=== PATIENT | female | born 1975 | race Caucasian/White ===

== ENCOUNTER 2016-05-27 22:17 | Emergency (ER) | payer MEDICARE ==
[2016-05-27 23:23] LABS: APPEARANCE CLOUDY (CLEAR); BILIRUBIN NEGATIVE (NEGATIVE); GLUCOSE NEGATIVE (NEGATIVE); KETONE NEGATIVE (NEGATIVE); LEUKOCYTE ESTERASE TRACE (NEGATIVE); NITRITE NEGATIVE (NEGATIVE); PROTEIN NEGATIVE (NEGATIVE); SPECIFIC GRAVITY 1.015 (1.005-1.020); UROBILINOGEN NORMAL (NORMAL)
[2016-05-27 23:32] LABS: BACTERIA MODERATE /hpf (NONE SEEN); EPITHELIAL CELLS 0-5 /hpf (0-5); GRANULAR CAST OCC /lpf (NONE SEEN); HYALINE CAST RARE /lpf (NONE SEEN); RED CELLS - URINE >50 /hpf (0-5); WHITE CELLS - URINE 0-5 /hpf (0-5)
[2016-05-27 23:44] LABS: BASOPHILS 0.3 % (0.0-2.0); EOSINOPHILS 1.2 % (0-7); HEMATOCRIT 40.1 % (36.0-48.0); HEMOGLOBIN 13.1 g/dL (12-16); IMMATURE GRANULOCYTES 0.9 % (0-5); LYMPHOCYTES 27.2 % (15-50); MCH 32.8 pg (26.0-34.0); MCHC 32.7 g/dL (31.0-37.0); MCV 100.5 fL (80.0-100.0); MONOCYTES 7.8 % (2-11); NEUTROPHILS 62.6 % (40-80); PLATELET COUNT 254 10x3/uL (130-400); RBC 3.99 10x6/uL (4.00-5.40); RDW 14.7 % (11.5-14.5); WBC 9.7 10x3/uL (4.8-10.8)
[2016-05-28 00:01] LABS: HCG SERUM NEGATIVE (NEGATIVE)
[2016-05-28 01:24] LABS: ALBUMIN 4.2 g/dL (3.4-5.0); ANION GAP 9.7 mmol/L (8-16); BILIRUBIN - TOTAL 0.34 mg/dL (0.2-1.3); CALCIUM 9.9 mg/dL (8.5-10.1); CARBON DIOXIDE 33.9 mmol/L (21.0-32.0); CREATININE - SERUM 1.2 mg/dL (0.6-1.3); POTASSIUM - SERUM 3.6 mmol/L (3.5-5.1); PROTEIN - SERUM 8.1 g/dL (6.4-8.2)
== END 2016-05-28 03:44 | disposition home or self-care (01) ==
LOC: D.ER 22:17
PROVIDERS: Family Medicine
DX: N39.0 Urinary tract infection, site not specified (principal); G51.0 Bell's palsy; I10 Essential (primary) hypertension; E03.9 Hypothyroidism, unspecified; G47.30 Sleep apnea, unspecified

== ENCOUNTER 2016-07-27 12:00 | Inpatient (IN) | payer MEDICARE ==
[~2016-07-27] VITALS: Ht 144.8 cm; Wt 154.4 kg
--- NOTE | ~2016-07-27 | CN ---
PATIENT NAME:MARY ANNE BREAUX MEDICAL RECORD: [id number] : 77 LOCATION:[id number] ADMIT DATE: 07/27/16 ACCOUNT: [id number] CONSULTING PHYSICIAN: JOSE RAFAEL ARGUETA MD REFERRING PHYSICIAN: ALFONZO ALVAREZ MD DATE OF CONSULTATION: 07/28/2016 Pulmonary Consultation CONSULT REQUESTING PHYSICIAN: Alfonzo Alvarez MD. REASON FOR CONSULTATION: Acute hypoxic respiratory failure, pneumonia and hemoptysis. HISTORY OF PRESENT ILLNESS: Ms. Breaux is a 41-year-old female, she is sick for the last 2-3 days. She has fever and chills. Two days ago, she was coughing fresh blood when she was coughing, but now there is no hemoptysis. The patient came into the ER with worsening shortness of breath, admitted with pneumonia and asthma exacerbation. REVIEW OF SYSTEMS: Mainly in the history of present illness. The details are not obtainable as the patient is on BiPAP now. PAST MEDICAL HISTORY: 1. Obstructive sleep apnea. 2. History of asthma. 3. Morbid obesity. 4. Hypothyroidism. PAST SURGICAL HISTORY: 1. She has a D&C. 2. Neck surgery. 3. Cyst removed from the ear. ALLERGIES: SHE IS ALLERGIC TO NAFCILLIN. PRESENT MEDICATIONS: On [employer] was reviewed. PERSONAL AND SOCIAL HISTORY: The patient is . She lives with her . She is an ex-smoker. She is a nondrinker. FAMILY HISTORY: Significant for a parent who has cancer. PHYSICAL EXAMINATION: GENERAL: Now, the patient is lying comfortably in bed. She is in mild respiratory distress, she is on BiPAP. VITAL SIGNS: The blood pressure is 112/70, pulse is 94, respirations 36, temperature 97.9 and SPO2 of 93% on BiPAP, 100% oxygen. HEENT: Conjunctivae pink, sclerae nonicteric. NECK: Supple. No JVD. CHEST: There is dullness on percussion in the right upper lobe. There are crackles. No wheezing. HEART: Rate and rhythm is regular, normal sound, no murmur. ABDOMEN: Soft, bowel sounds present. No hepatosplenomegaly. RECTAL: Deferred. CONSULT REPORT [id number] MARY ANNE BREAUX EXTREMITIES: No cyanosis, no clubbing. There is no pedal edema. SKIN: Warm, normal turgor. CENTRAL NERVOUS SYSTEM: The patient is awake and alert. There is no obvious cranial nerve abnormality. The gait was not tested. LABORATORY DATA: CBC: The WBC is 12.5, hemoglobin 8.9, hematocrit 27.7 and the platelet count 265. Chemistry: Sodium is 141, potassium is 4, BUN is 15, creatinine 1.2, glucose 124. ABG: The pH is 7.39, pCO2 is 42.7, the pO2 is 47 and bicarbonate is 26.4. RADIOLOGY: The CT scan of the chest showed multilobar pneumonia with air bronchogram. There are extensive bilateral infiltrates. IMPRESSION: 1. Acute hypoxic respiratory failure secondary to multilobar pneumonia. 2. Acute exacerbation of asthma. 3. Hemoptysis. 4. Morbid obesity. 5. Obstructive sleep apnea. 6. Leukocytosis secondary to pneumonia. The CT scan of the chest showed multilobar pneumonia with air bronchogram. There are extensive bilateral infiltrates. RECOMMENDATION: 1. Discontinue Zithromax. Start her on Levaquin. Continue Rocephin. May start methylprednisolone IV. Start albuterol/ipratropium nebulizer. Start on Brovana and budesonide nebulizer. 2. Racemic epi for hemoptysis p.r.n. 3. Methylprednisolone IV, BiPAP as required. Check the ANCA, anti-GBM, ESR, followup labs in the morning. Follow chest x-ray in the morning. The patient's condition is borderline. If she fails BiPAP, she needs to be intubated. We will hold on any bronchoscopy at this stage. Dr. Alvarez, thank you for involving me in the care of Ms. Breaux. The critical care time is 50 minutes. TRANSINT:[id number] Voice Confirmation ID: [id number] DOCUMENT ID: [id number] JOSE RAFAEL ARGUETA MD CC: [id number] DICTATION DATE: 07/28/16 1140 REHAB TECH: 07/28/16 2017 ADM IN [place] [id number] [place] [address]
[2016-07-27 13:41] LABS: BASOPHILS 0.3 % (0-2); EOSINOPHILS 1.4 % (0-7); HEMATOCRIT 30.8 % (36.0-48.0); HEMOGLOBIN 10.1 g/dL (12-16); IMMATURE GRANULOCYTES 1.7 % (0-5); LYMPHOCYTES 13.8 % (15-50); MCHC 32.8 g/dL (31.0-37.0); MCV 103.7 fL (80.0-100.0); MEAN PLATELET VOLUME 10.4 fL (7.4-10.4); NEUTROPHILS 76.8 % (40-80); PLATELET COUNT 275 10x3/uL (130-400); RBC 2.97 10x6/uL (4.00-5.40); RDW 14.7 % (11.5-14.5); WBC 10.7 10x3/uL (4.8-10.8)
[2016-07-27 13:58] LABS: ALBUMIN 3.7 g/dL (3.4-5.0); ALKALINE PHOSPHATASE 50 U/L (46-116); ALT (SGPT) 28 U/L (10-68); BILIRUBIN - TOTAL 0.86 mg/dL (0.2-1.3); CALC OSMOLALITY 281 mosm/kg (275-300); CALCIUM 9.2 mg/dL (8.5-10.1); CARBON DIOXIDE 29.3 mmol/L (21.0-32.0); CHLORIDE - SERUM 104 mmol/L (98-107); CREATININE - SERUM 1.3 mg/dL (0.6-1.3); GLUCOSE 94 mg/dL (74-106); POTASSIUM - SERUM 4.2 mmol/L (3.5-5.1); PROTEIN - SERUM 7.4 g/dL (6.4-8.2); SODIUM 141 mmol/L (136-145); UREA NITROGEN 16 mg/dL (7-18); eGFR NON AFRICAN AMERICAN 48 mL/min (90-120)
[2016-07-27 14:18] LABS: CREATINE KINASE 742 UL (21-215); PRO BNP 270 pg/mL (0-125)
[2016-07-27 14:20] LABS: CKMB 4.4 U/L (0.0-3.6); TROPONIN-I < 0.017 ng/mL (0.000-0.060)
[2016-07-27 16:06] VITALS: BP 144/94; BMI 75.8
[2016-07-27 16:15] VITALS: BP 144/94
--- NOTE | 2016-07-27 16:24 | NUR ---
PT FROM ER TO ROOM 2112. ADMISSION COMPLETE. AT BEDSIDE. PT IS ON NONREBREATHER MASK 15L SATS ARE 90%. PT PLACED ON TELE. PT DENIES NEEDS WILL CONT TO MONITOR
[2016-07-27] MEDS ORDERED: CIPRO500 MG PO (16:30)
[2016-07-27] MEDS ORDERED: VOLTAREN75 MG PO (16:30)
[2016-07-27] MEDS ORDERED: LISINOPRIL-HCTZ1 T11 PO (16:30)
[2016-07-27] MEDS ORDERED: PHENAZOPYRIDIN200 MG PO (16:31)
[2016-07-27] MEDS ORDERED: BACTRIM DS TABL1 TAB PO (16:31)
[2016-07-27] MEDS ORDERED: HYDROCODON-ACE1 EAC7 PO (16:31)
--- NOTE | 2016-07-27 17:30 | NUR ---
FIRST EKG IN SET COMPLETE AND PLACED ON THE CHART. WILL PASS ALONG IN REPORT ABOUT NEXT TWO DUE.
[2016-07-27 18:22] LABS: % SATURATION 12 % (15-55); IRON 53 ug/dl (35-150); TOTAL IRON BIND CAPACITY 439 ug/dl (260-445); UNSAT IRON BIND CAPACITY 386 ug/dl (150-375)
--- NOTE | 2016-07-27 19:48 | NUR ---
ALERT/AWAKE WATCHING TV. DENIES PAIN OR ANY NEEDS. O2 AT 15L ON NON-REBREATHER MASK. AUDIBLE WHEEZES NOTED. IV IN L AC WITH NS INFUSING 50ML/HR. ON TELEMETRY, SHOWS 96 SR. CALL LIGHT AND BEDSIDE TABLE WITH PERSONAL ITEMS IN REACH.
[2016-07-27 21:42] VITALS: BP 137/68
[2016-07-27 22:26] LABS: CREATINE KINASE 611 UL (21-215); TROPONIN-I < 0.017 ng/mL (0.000-0.060)
--- NOTE | 2016-07-27 22:40 | NUR ---
DID EKG PER ORDER. DENIED ANY NEEDS. RATED PAIN LEVEL AT 2 ON NUMBER SCALE.
[2016-07-28] VITALS (14 sets, daily range): BP systolic 93–147; BP diastolic 56–88; Ht 144.8 cm; Wt 154.4 kg
--- NOTE | 2016-07-28 01:33 | NUR ---
RESTING WITH EYES CLOSED, SNORING LIGHTLY. RR 18 EVEN U/L. 02 AT 15L PER OXIMIZER. NO S/S OF PAIN OR DISCOMFORT. CALL LIGHT IN REACH.
[2016-07-28 04:23] LABS: BASOPHILS 0.2 % (0-2); EOSINOPHILS 1.1 % (0-7); HEMATOCRIT 27.7 % (36.0-48.0); HEMOGLOBIN 8.9 g/dL (12-16); IMMATURE GRANULOCYTES 0.8 % (0-5); LYMPHOCYTES 8.8 % (15-50); MCHC 32.1 g/dL (31.0-37.0); MEAN PLATELET VOLUME 10.3 fL (7.4-10.4); NEUTROPHILS 83.1 % (40-80); PLATELET COUNT 265 10x3/uL (130-400); RBC 2.62 10x6/uL (4.00-5.40); WBC 12.5 10x3/uL (4.8-10.8)
[2016-07-28 04:24] LABS: MCV 105.7 fL (80.0-100.0)
--- NOTE | 2016-07-28 04:41 | NUR ---
ASSISTED TO BATHROOM AND BACK TO BED. CHANGED GOWN AND PAD DUE TO SWEATING. REQUESTED MORE ICE WATER.
[2016-07-28 04:54] LABS: ALBUMIN 3.3 g/dL (3.4-5.0); ALKALINE PHOSPHATASE 49 U/L (46-116); ALT (SGPT) 29 U/L (10-68); BILIRUBIN - TOTAL 0.83 mg/dL (0.2-1.3); CALC OSMOLALITY 282 mosm/kg (275-300); CALCIUM 8.5 mg/dL (8.5-10.1); CARBON DIOXIDE 28.7 mmol/L (21.0-32.0); CHLORIDE - SERUM 106 mmol/L (98-107); CKMB 2.9 U/L (0.0-3.6); CREATINE KINASE 507 UL (21-215); CREATININE - SERUM 1.2 mg/dL (0.6-1.3); GLUCOSE 124 mg/dL (74-106); MAGNESIUM - SERUM 2.2 mg/dL (1.8-2.4); PHOSPHOROUS 3.4 mg/dL (2.5-4.9); PROTEIN - SERUM 6.8 g/dL (6.4-8.2); SODIUM 141 mmol/L (136-145); UREA NITROGEN 15 mg/dL (7-18); eGFR NON AFRICAN AMERICAN 53 mL/min (90-120)
[2016-07-28 05:10] LABS: TROPONIN-I < 0.017 ng/mL (0.000-0.060)
--- NOTE | 2016-07-28 05:25 | NUR ---
GRINDER OPERATOR TOOL REPORT O2 SAT OF 52%. RAISED HOB AND HAD HER DEEP BREATH AND COUGH. ONLY CAME UP TO 62%. CALLED RESP TECH AND SHE PLACED PATIENT ON NON-REBREATHER MASK AT 15L. 02 SAT CAME UP TO 94%.
--- NOTE | 2016-07-28 06:07 | NUR ---
RECHECKED BS WITH GLUCOMETER AT 62. GAVE HER SOME THICKEN APPLEJUICE AND APPLESAUCE.
--- NOTE | 2016-07-28 06:12 | NUR ---
RECHECKED 02 SAT'S AT 94%. DENIES ANY OTHER NEEDS OR DISCOMFORTS.
--- NOTE | 2016-07-28 07:15 | NUR ---
RECEIVED REPORT. ASSUMED CARE OF PATIENT. PATIENT WITH EYES CLOSED. EASILY AROUSED. PATIENT VERY PALE IN APPEARANCE. OXIMIZER AT 15 LITERS. ALERT/ORIENTED. CALL LIGHT WITHIN REACH. PATIENT HAVING SLIGHT BLOOD TINGED SPUTUM. PATIENT IS VERY EDEMATOUS, GENERALIZED. NO ACUTE DISTRESS. SCATTERED WHEEZES AND CRACKLES THROUGHTOUT LUNG WHITLOCK.
--- NOTE | 2016-07-28 07:52 | NUR ---
PATIENT O2 SAT DURING VITALS AT THIS TIME 65% ON 15L OXIMIZER. RESPIRATORY AT BEDSIDE AND STATES THAT SHE WAS PREVIOUSLY ON NON REBREATHER MASK AND GAVE A TREATMENT TO PATIENT. RESPIRATORY, PHILIPP, AT BEDSIDE AT THIS TIME TO DRAW ABGS. PAGE PLACED TO .
--- NOTE | 2016-07-28 08:22 | NUR ---
ORDERS RECEIVED FROM TO PLACE ON BIPAP AND GIVE IV LASIX 40. BIPAP PLACED AT THIS TIME AND PATIENT SATURATION IS 97%, CONTINUOUS O2 SAT AT BEDSIDE.
--- NOTE | 2016-07-28 08:53 | NUR ---
REMAINS ON BIPAP, SATURATION 98%
[2016-07-28 10:02] LABS: CKMB 3.2 U/L (0.0-3.6); CREATINE KINASE 504 UL (21-215)
[2016-07-28 10:05] LABS: TROPONIN-I < 0.017 ng/mL (0.000-0.060)
--- NOTE | 2016-07-28 10:31 | NUR ---
PATIENT O2 SAT 90% ON 100% BIPAP, RESP 47. HOUSE SUP AND EMERGENCY OPERATOR NOTIFIED. PATIENT BEING TRANSFERRED TO ICU RM 2304. SPOKE WITH PAYTON AT THIS TIME AND NOTIFIED OF PATIENT BEING TRANSFERRED.
--- NOTE | 2016-07-28 10:46 | NUR ---
PATIENT TRANSFERRED TO ICU AT THIS TIME. REPORT GIVEN TO ARACELI. PATIENT TRANSERRED WITH ALL PERSONAL BELONGINGS.
--- NOTE | 2016-07-28 11:00 | NUR ---
AT BEDSIDE - UPDATED ON PT'S CONDITION - SPOUSE REPORTS PT USES CPAP AT NIGHT - RESP THEAAPIST ALSO ANSWERED ALL QUESTIONS
--- NOTE | 2016-07-28 11:01 | NUR ---
1045 RECEIVED IN ICU PER BED ON MASK AT 100% OXYGEN, PLACED ON CPAP ON ARRIVAL. VITAL SIGNS STABLE. AWAKE AND ALERT. SKIN WARM AND DRY. BILATERAL LUNG SOUNDS CLEAR AND DIMISHED. ABD SOFT WITH BOWEL SOUNDS PRESENT X 4. PERIPHERAL PULSES PALABLE WTIH NO EDEMA NOTED. IV LEFT AC NO SWELLING OR REDNESS AT SITE. INFUSING WITH NS AT 50 ML HOUR. MONITOR SR. DENIES ANY PAIN.
--- NOTE | 2016-07-28 12:39 | NUR ---
REC'D ORDER TO PLACE NEWMAN FROM DR. ARGUETA - INSERTED WITH ASSISTANCE X 3 RNs. 400 ML ORANGE COLORED URINE OUTPUT. PT TOLERATED PROCEDURE WELL. SPOUSE TOOK ALL PT'S BELONGINGS HOME REQUESTED. PT ASKED FOR A DRINK OF WATER - CONFIRMED W/RT - PT IS NOT TO COME OFF 100% BIPAP. PT NODDED UNDERSTANDING - CPOC
[2016-07-28 12:45] LABS: ERYTHROCYTE SEDIMENTATION RATE 74 mm/hr (0-20)
--- NOTE | 2016-07-28 13:24 | NUR ---
~1300 - R.T. AT BEDSIDE - PLACED PT ON OXYMIZER, GAVE AN ICE CHIP. MONITORING POX CLOSELY ~1315 r.t. PAACED PT ON BIPAP AT ORIGINAL SETTINGS - PT GRATEFUL FOR ICE CHIP. CPOC
--- NOTE | 2016-07-28 18:30 | NUR ---
LOSS OF POWER - CHECKED PT'S BIPAP - IS POX DROPPED 85% PER CONT POX. r.t AT BEDSIDE TO RE-SET BIPAP - PT'S POX UP TO 92%. BACK UP ELECTRICAL POWER AT THIS TIME.
--- NOTE | 2016-07-28 19:15 | NUR ---
RECEIVED CARE OF PT, ASSESSMENT PER FLOWSHEET. PT ALERT AND ORIENTED X 4, RECEIVING 100% FIO2 VIA BIPAP MASK, ORAL CARE PROVIDED, PPP, NEWMAN CATH PATENT WITH BLOODY URINE IN TUBING, BREATH SOUNDS DIMINISHED BILATERALLY, PT POSITIONED FOR COMFORT, CALL LIGHT IN REACH, BED LOW, DENIES ANY NEEDS AT THIS TIME.
--- NOTE | 2016-07-28 21:44 | NUR ---
PT IN FOR VISITATION, ALL QUESTIONS ANSWERED, DENIES ANY NEEDS, PT RESTING WITH BIPAP IN PLACE.
--- NOTE | 2016-07-28 23:15 | NUR ---
REASSESSMENT PER FLOWSHEET, NO ACUTE CHANGES NOTED AT THIS TIME. PT POSITIONED FOR COMFORT, ORAL CARE PROVIDED, VSS, CONT POC.
[2016-07-29] VITALS (23 sets, daily range): BP systolic 90–134; BP diastolic 44–84
--- NOTE | 2016-07-29 01:15 | NUR ---
PT RESTING IN BED WITH EYES CLOSED, BIPAP MASK IN PLACE, VSS.
--- NOTE | 2016-07-29 03:00 | NUR ---
REASSESSMENT PER FLOWSHEET, NO ACUTE CHANGES NOTED. PT DENIES ANY NEEDS AT THIS TIME, CALL LIGHT IN REACH, CONT TO MONITOR.
[2016-07-29 04:35] LABS: ALBUMIN 3.3 g/dL (3.4-5.0); ANION GAP 14.6 mmol/L (8-16); BILIRUBIN - TOTAL 1.08 mg/dL (0.2-1.3); CALCIUM 8.4 mg/dL (8.5-10.1); CARBON DIOXIDE 26.8 mmol/L (21.0-32.0); CREATININE - SERUM 1.2 mg/dL (0.6-1.3); POTASSIUM - SERUM 4.4 mmol/L (3.5-5.1); PROTEIN - SERUM 6.7 g/dL (6.4-8.2)
--- NOTE | 2016-07-29 05:20 | NUR ---
AM LABS REVIEWED, NOTHING TO TREAT PER ELECTROLYTE PROTOCOL. PT RESTING IN BED WITH EYES CLOSED, BIPAP MASK IN PLACE, VSS.
[2016-07-29 07:01] LABS: BASOPHILS 0.1 % (0-2); EOSINOPHILS 0 % (0-7); HEMATOCRIT 27.3 % (36.0-48.0); HEMOGLOBIN 8.7 g/dL (12-16); IMMATURE GRANULOCYTES 0.8 % (0-5); LYMPHOCYTES 3.8 % (15-50); MCH 33.9 pg (26.0-34.0); MCHC 31.9 g/dL (31.0-37.0); MCV 106.2 fL (80.0-100.0); MONOCYTES 2.4 % (2-11); NEUTROPHILS 92.9 % (40-80); PLATELET COUNT 290 10x3/uL (130-400); RBC 2.57 10x6/uL (4.00-5.40); RDW 15.1 % (11.5-14.5); WBC 14.6 10x3/uL (4.8-10.8)
--- NOTE | 2016-07-29 07:45 | NUR ---
0745- REC'D PT AAO X4 ON BIPAP. ASSESSMENT COMPLETE. SEE FLOWSHEET. NEWMAN CATHETER IN PLACE DRAINING BLOODY URINE. LEFT PIV IN 20G AC. 0815- R/T AT BEDSIDE, PLACED ON OXIMISER.
--- NOTE | 2016-07-29 10:45 | NUR ---
1045- PT ON AND OFF BIPAP PRN. PT STATES, "MY BREATHING SEEMS BETTER TODAY". WILL CONTINUE TO MONITOR CLOSELY. 1230- PT RESTING ON BIPAP. VSS. WILL CONTINUE TO MONITOR. 1450- PT RESTING QUIETLY ON BIPAP. R/T AT BEDSIDE.
--- NOTE | 2016-07-29 16:19 | NUR ---
SPEECH THERAPIST, BRITT LI AT BEDSIDE TO EVALUATE.
--- NOTE | 2016-07-29 19:00 | NUR ---
Recevied patient resting in bed on BiPAP, Assessment completed per flowsheet. Patient AO x4, calm and cooperative. S1/S2 noted Sinus Tach on telmetry with HR 106, rhythmic and regluar. Breathing is shallow and slightly labored on BiPAP @ 80%, Lung sounds Diminished all cobb. Abdomen is round and obese, bowel sounds active x4. Field Secured in place, Bloody urine noted in collection bag. Weakness/swelling noted in all extremities, all pulses weakly palpable. Reddened area noted back/buttocks, repositioned. 20g PIV noted L AC, patent with fluids infusing. Patient denies pain or other needs at this time, all VSS and will continue to monitor.
--- NOTE | 2016-07-29 23:00 | NUR ---
Reassessment completed per flowsheet, patient resting in bed with eyes open watching TV. Patient NSR on telemetry with HR 93, rhythmic and regular. BiPAP settings unchanged from previous, O2 sat 98%. Lung sounds diminished all lobes, all pulses weakly palpable. Denies pain or other needs at this time, all VSS and will continue to monitor.
[2016-07-30] VITALS (22 sets, daily range): BP systolic 104–150; BP diastolic 70–108
--- NOTE | 2016-07-30 03:00 | NUR ---
Reassessment completed per flowsheet, patient resting in bed with eyes closed. Patient NSR on telemetry with HR 89, rhythmic and regular. BiPAP settings unchanged @ 80%, O2 sat 100%. Breathing is shallow and slightly labored, lung sounds diminished all lobes. Patient denies pain or other needs at this time, all VSS and will continue to monitor.
[2016-07-30 04:43] LABS: ALBUMIN 3.3 g/dL (3.4-5.0); ANION GAP 13.7 mmol/L (8-16); BILIRUBIN - TOTAL 1.05 mg/dL (0.2-1.3); CALCIUM 8.6 mg/dL (8.5-10.1); CARBON DIOXIDE 27.2 mmol/L (21.0-32.0); CREATININE - SERUM 1.2 mg/dL (0.6-1.3); POTASSIUM - SERUM 3.9 mmol/L (3.5-5.1); PROTEIN - SERUM 6.8 g/dL (6.4-8.2)
--- NOTE | 2016-07-30 07:30 | NUR ---
0730- REC'D PT AAO X4. ASSESSMENT COMPLETE. SEE FLOWSHEET. PT ON BIPAP, RESTING IN BED. VSS. WILL CONTINUE TO MONITOR. 0924- DR HOROWITZ TO BEDSIDE. NEW ORDERS REC'D FOR VAPOTHERM. 3240- REASSESSMENT COMPLETE. SEE FLOWSHEET. PT RESTING BETTER ON VAPOTHERM.
--- NOTE | 2016-07-30 09:37 | NUR ---
Nutrition follow-up: Diet: low sodium PO intake ~75% of last [address] Wt: 350# PO intake good at this time. Will continue to provide food choices and honor food preferences within diet restrictions. RDN following.
--- NOTE | 2016-07-30 13:30 | NUR ---
PT RESTING IN BED, DENIES NEEDS AT THIS TIME.
--- NOTE | 2016-07-30 15:30 | NUR ---
CHANGED PATIENT TO VAPOTHERM @ 40L 100%, AND LEFT BIPAP IN ROOM FOR PRN, PER DR. HOROWITZ.
--- NOTE | 2016-07-30 15:45 | NUR ---
1545- PT SPOUSE AT BEDSIDE VAPOTHERM IN USE.
--- NOTE | 2016-07-30 17:50 | NUR ---
1750- PT SITTING UP IN BED, WATCHING TV, BREATHING COMFORTABLY ON VAPOTHERM.
--- NOTE | 2016-07-30 19:00 | NUR ---
Received patient resting in bed with eyes open, Assessment completed per flowsheet. Patient AO x4, calm and cooperative. Eyes PERRLA @ 3mm with brisk response, sclera is white. S1/S2 noted NSR on telemetry with HR 99, rhythmic and regular. Breathing is slightly shallow and unlabored on 40% Vapotherm, Lung sounds diminished all lobes. Abdomen is obese and soft, Bowel sounds active x4. Field secured in place, Lazy Y U/orange urine noted in collection bag. Generalized swelling and weakness noted all extremities with all pulses palpable, cap refill <3 sec. 20g PIV noted R AC, patent with fluids infusing. Patient denies pain or other needs at this time, all VSS and will continue to monitor.
--- NOTE | 2016-07-30 21:00 | NUR ---
Patient family at bedside for visitation, all questions answered to satisfaction. No further needs at this time, all VSS and will continue to monitor.
--- NOTE | 2016-07-30 22:40 | NUR ---
Reassessment completed per flowsheet, patient resting in bed with eyes open watching TV. S1/S2 noted NSR on telemetry with HR 96, rhythmic and regular. Breathing is slightly shallow and unlabored on Vapotherm @ 40%, O2 sat 99%. Patient denies pain or other needs at this time, all VSS and will continue to monitor.
[2016-07-31] VITALS (24 sets, daily range): BP systolic 135–163; BP diastolic 82–115
--- NOTE | 2016-07-31 01:00 | NUR ---
Patient resting in bed with eyes closed, breathing is shallow and unlabored on Vapotherm @ 40%. No further needs at this time, all VSS and will continue to monitor.
--- NOTE | 2016-07-31 03:00 | NUR ---
Reassessment completed per flowsheet, patient resting in bed with eyes closed. S1/S2 noted NSR on telemetry with HR 94, rhythmic and regular. Breathing is shallow and unlabored on Vapotherm 40%, O2 sat 93%. Patient denies pain or other needs at this time, all VSS and will continue to monitor.
[2016-07-31 03:37] LABS: BASOPHILS 0.2 % (0-2); EOSINOPHILS 0.1 % (0-7); HEMOGLOBIN 9.6 g/dL (12-16); IMMATURE GRANULOCYTES 4.7 % (0-5); LYMPHOCYTES 6.6 % (15-50); MCH 33.8 pg (26.0-34.0); MCV 105.6 fL (80.0-100.0); MEAN PLATELET VOLUME 10.9 fL (7.4-10.4); MONOCYTES 3.6 % (2-11); NEUTROPHILS 84.8 % (40-80); PLATELET COUNT 324 10x3/uL (130-400); RBC 2.84 10x6/uL (4.00-5.40); RDW 15.1 % (11.5-14.5)
[2016-07-31 03:43] LABS: WBC 19.9 10x3/uL (4.8-10.8)
[2016-07-31 03:53] LABS: ALBUMIN 3.2 g/dL (3.4-5.0); ANION GAP 11.9 mmol/L (8-16); BILIRUBIN - TOTAL 1.17 mg/dL (0.2-1.3); CALCIUM 8.8 mg/dL (8.5-10.1); CARBON DIOXIDE 28.1 mmol/L (21.0-32.0); CREATININE - SERUM 1.3 mg/dL (0.6-1.3); MAGNESIUM - SERUM 2.5 mg/dL (1.8-2.4); PHOSPHOROUS 2.1 mg/dL (2.5-4.9); PROTEIN - SERUM 7.2 g/dL (6.4-8.2)
--- NOTE | 2016-07-31 07:00 | NUR ---
REC'D REPORT AND RESUMED CARE, AAO, VAPOTHRM IN USE AT 40 LPM WITH 100% FIO2, SAT 90 %, DENIES SOB OR DYSPNEA, RIGHT FA PIV WITH NS AT 75 C/HR, DRESSING CDI, NEWMAN TO GRAVITY, WITH RED TINGED DRAINAGE TO BAG, DENIES PAIN, ASSESSMENT COMPLETED PER FLOWSHEET, OTHER VSS, SELF REPOSITIONS, CALL LIGHT IN REACH, NO NEEDS AT THIS TIME
--- NOTE | 2016-07-31 08:09 | NUR ---
UP AT BEDSIDE FOR BREAKFAST
--- NOTE | 2016-07-31 11:26 | NUR ---
DR HOROWITZ MAKING ROUNDS NEW ORDERS GIVEN, AFRIN AND SALINE NASAL SPRAY
--- NOTE | 2016-07-31 13:55 | NUR ---
SALINE NASAL SPRAY AND AFRIN NASAL SPRAY IN REQUESTED, 1 SPRAY TO EACH NOSTRIL GIVEN, DIME SIZE BLOODY PLUG BLOWN OUT, STATES FEELS BETTER
--- NOTE | 2016-07-31 15:00 | NUR ---
ASSESSMENT COMPLETE, SEE FLOW SHEET, AAO, VSS, DENIES PAIN, NO NEEDS AT THIS TIME, SPOUSE AT BEDSIDE, STATUS UPDATED, NO NEEDS AT THIS TIME
--- NOTE | 2016-07-31 17:00 | NUR ---
UP AT BEDSIDE FOR DINNER,
--- NOTE | 2016-07-31 18:00 | NUR ---
BTB WITH ASSIST, REPOSITIONED UP AND TO BACK, VSS, CALL LIGHT IN REACH NO OTHER NEEDS AT THIS TIME
--- NOTE | 2016-07-31 18:15 | NUR ---
FAMILY AT BEDSIDE, NO NEEDS AT THIS TIME
--- NOTE | 2016-07-31 19:45 | NUR ---
REC'D TO CARE, RESP TX IN PROCESS. PT COOPERATIVE, LUNGS CLEAR, BUT DIMINISHED. RR 28 AND SLIGHTLY LABORED. NOTED SOB WITH TALKING. VAPOTHERM IN USE, POX 97% AT THIS TIME. COUGH NOTED, YANKAUER IN USE. NEWMAN CATH PATENT WITH CARLA, CONC URINE NOTED. PT IS MORBIDLY OBESE, REPOSITIONED IN BED WITH PILLOWS, HEELS BRIDGED. 1+ PITTING EDEMA TO FEET NOTED. IVF INFUSING TO R PIV, NO REDNESS OR SWELLING AT SITE. ALARMS ON AND C/L IN USE.
--- NOTE | 2016-07-31 21:50 | NUR ---
PO MEDS GIVEN PER ORDERS. PT REPOSITIONED UP IN BED FOR COMFORT. C/L IN REACH.
--- NOTE | 2016-07-31 23:56 | NUR ---
COMPLETE BATH AND LINEN CHANGE DONE. REASSESSMENT PER FLOWSHEET. NO ACUTE CHANGES. PT COOPERATIVE, CONT ON VAPOTHERM, REFUSES BIPAP.
[2016-08-01] VITALS (24 sets, daily range): BP systolic 124–158; BP diastolic 80–116
--- NOTE | 2016-08-01 01:17 | NUR ---
PT C/O BACK PAIN, REPOSITIONED WITH PILLOWS AND PRN NORCO GIVEN.
--- NOTE | 2016-08-01 02:13 | NUR ---
RT AT BS, PT TO BIPAP 80%, RR 24, POX 98%. C/L IN REACH.
--- NOTE | 2016-08-01 03:25 | NUR ---
PCXR DONE. REASSESSMENT PER FLOWSHEET, NO ACUTE CHANGES. PT BACK ON VAPOTHERM AFTER AGBS. ORAL CARE PROVIDED. C/L IN REACH.
[2016-08-01 04:49] LABS: HEMATOCRIT 31.1 % (36.0-48.0); HEMOGLOBIN 9.9 g/dL (12-16); MCH 33.6 pg (26.0-34.0); MCHC 31.8 g/dL (31.0-37.0); MCV 105.4 fL (80.0-100.0); MEAN PLATELET VOLUME 11.3 fL (7.4-10.4); PLATELET COUNT 274 10x3/uL (130-400); RBC 2.95 10x6/uL (4.00-5.40); RDW 15.2 % (11.5-14.5); WBC 20.9 10x3/uL (4.8-10.8)
[2016-08-01 04:58] LABS: ALBUMIN 3.2 g/dL (3.4-5.0); ANION GAP 13.8 mmol/L (8-16); BILIRUBIN - TOTAL 1.17 mg/dL (0.2-1.3); CALCIUM 8.2 mg/dL (8.5-10.1); CARBON DIOXIDE 26.9 mmol/L (21.0-32.0); CREATININE - SERUM 1.2 mg/dL (0.6-1.3); MAGNESIUM - SERUM 2.4 mg/dL (1.8-2.4); PHOSPHOROUS 2.2 mg/dL (2.5-4.9); POTASSIUM - SERUM 3.7 mmol/L (3.5-5.1); PROTEIN - SERUM 6.8 g/dL (6.4-8.2)
--- NOTE | 2016-08-01 05:00 | NUR ---
RESTING QUIETLY, NO SIGN OF DISTRESS.
[2016-08-01 05:31] LABS: LYMPHOCYTES 10 % (15-50); MONOCYTES 1 % (2-11); NEUTROPHILS 82 % (40-80); PLATELET ESTIMATE NORMAL
--- NOTE | 2016-08-01 06:42 | NUR ---
NO VISITORS, PT WATCHING TV. NO SIGN OF DISTRESS.
--- NOTE | 2016-08-01 08:00 | NUR ---
BIPAP OFF AND VAPOTHERM @ 40 LPM AND 100% ON FOR BREAKFAST
[2016-08-01 10:22] LABS: ANA REFLEX - DIRECT Negative (Negative)
--- NOTE | 2016-08-01 10:22 | NUR ---
VASCULAR ACCESS NURSE AT BEDSIDE, PICC LINE IN LEFT UPPER ARM,
--- NOTE | 2016-08-01 10:33 | NUR ---
CALL TO RADIOLOGY FOR STAT CXR
--- NOTE | 2016-08-01 10:38 | NUR ---
STAT CHEST XRAY COMPLETED
--- NOTE | 2016-08-01 10:57 | NUR ---
PER DR ARGUETA, PICC LINE PLACEMENT OK FOR USE
--- NOTE | 2016-08-01 11:00 | NUR ---
RESTING WITH NO SIGN OF DISTRESS, VSS, DENIES PAIN, ASSESSMENT COMPLETED, SEE FLOWSHEET, NO ACUTE CHANGE FROM PREVIOUS
--- NOTE | 2016-08-01 11:45 | NUR ---
LUNCH TRAY TO BEDSIDE, INDEPENDENT WITH SET UP AND EATING
--- NOTE | 2016-08-01 12:35 | NUR ---
VANC TROUGH DRAWN FROM PICC LINE AND SENT TO LAB
--- NOTE | 2016-08-01 14:38 | NUR ---
RT INITIATED UPDRAFT, O2 SAT 67, CHANGED TO BIPAP FOR TREATMENT, O2 SAT 96%
--- NOTE | 2016-08-01 15:00 | NUR ---
ASSESSMENT COMPLETE, VSS CONTINUES ON BIPAP, AAO, SPOUSE AT BEDSIDE, STATUS UPDATED, NO ACUTE CHANGE FROM PREVIOUS
[2016-08-01 15:24] LABS: ANCA - ANTIMYELOPEROXIDASE <9.0 U/mL (0.0-9.0); ANCA - ANTIPROTEINASE 3 <3.5 U/mL (0.0-3.5); ANCA - ATYPICAL <1:20 titer (Neg:<1:20); ANCA - CYTOPLASMIC <1:20 titer (Neg:<1:20); ANCA - PERINUCLEAR <1:20 titer (Neg:<1:20)
--- NOTE | 2016-08-01 17:00 | NUR ---
DINNER TRAY TO BEDSIDE, INDEPENDENT WITH SET UP AND EATING
--- NOTE | 2016-08-01 18:00 | NUR ---
SPOUSE AT BEDSIDE, STATUS UPDATED, NO NEEDS AT THIS TIME, PT AAO, VSS, DENIES PAIN AT THIS TIME
--- NOTE | 2016-08-01 19:30 | NUR ---
ASSESSMENT COMPLETE. S1S2. NSR SHOWING ON MONITOR. RR SHALLOW; DIMINISHED IN THE MID AND LOWER LOBES; WHEEZE NOTED ON IN UPPER LOBES. SKIN PALE. AAO. PERRLA. RADIAL AND PEDAL PULSES PALPATED. BUTTOCKS REDDENED. BACK REDDENED AND BRUISES NOTED.
[2016-08-01 21:07] LABS: MYCOPLASMA PNEUMO IGG 630 U/mL (0-99)
--- NOTE | 2016-08-01 21:15 | NUR ---
FAMILY AT BEDSIDE. UPDATE GIVEN. QUESTIONS ANSWERED
--- NOTE | 2016-08-01 23:15 | NUR ---
REASSESSMENT COMPLETE. NO CHANGES FROM PREVIOUS ASSESSMENT. WILL CONTINUE TO MONITOR.
[2016-08-02] VITALS (24 sets, daily range): BP systolic 130–165; BP diastolic 69–103
--- NOTE | 2016-08-02 03:10 | NUR ---
REASSESSMENT COMPLETE. NO CHANGES FROM PREVIOUS ASSESSMENT. VSS. NO DISTRESS NOTED. WILL CONTINUE TO MONITOR
[2016-08-02 04:22] LABS: BASOPHILS 0.4 % (0-2); EOSINOPHILS 0 % (0-7); HEMATOCRIT 30.4 % (36.0-48.0); HEMOGLOBIN 9.4 g/dL (12-16); IMMATURE GRANULOCYTES 7.4 % (0-5); LYMPHOCYTES 9.7 % (15-50); MCH 33.2 pg (26.0-34.0); MCHC 30.9 g/dL (31.0-37.0); MCV 107.4 fL (80.0-100.0); MEAN PLATELET VOLUME 11.2 fL (7.4-10.4); MONOCYTES 3.6 % (2-11); NEUTROPHILS 78.9 % (40-80); PLATELET COUNT 221 10x3/uL (130-400); RBC 2.83 10x6/uL (4.00-5.40); RDW 14.9 % (11.5-14.5); WBC 20.8 10x3/uL (4.8-10.8)
[2016-08-02 04:27] LABS: ANION GAP 9.7 mmol/L (8-16); CARBON DIOXIDE 31.3 mmol/L (21.0-32.0); CREATININE - SERUM 1.2 mg/dL (0.6-1.3)
--- NOTE | 2016-08-02 07:00 | NUR ---
REC'D REPORT AND RESUMED CARE, VSS VAPOTHERM IN USE AT 80% FIO2, DENIES PAIN, ASSESSMENT COMPLETE PER FLOWSHEET, NO NEEDS AT THIS TIME
--- NOTE | 2016-08-02 08:10 | NUR ---
HERON PAD SOILED, HAVING MENSTRAL CYCLE, SKINCARE AND LINEN CHANGE, UP TO SIDE OF BED FOR BREAKFAST, INDEPENDENT WITH SET UP AND EATING
--- NOTE | 2016-08-02 09:15 | NUR ---
AM MEDS GIVEN WITHOUT DIFFICULTY
--- NOTE | 2016-08-02 10:13 | NUR ---
Nutrition follow-up: Diet: low sodium PO intake 75-100% of meals Labs reviewed Wt: 361# PO intake remains good at this time. RDN following.
--- NOTE | 2016-08-02 11:00 | NUR ---
ASSESSMENT COMPLETE SEE FLOWSHEET, VSS, FIO2 NOW 70% ON VAPOTHERM, SAT 97%, NO OTHER ACUTE CHANGE FROM PREVIOUS
--- NOTE | 2016-08-02 11:32 | NUR ---
FATHER AND UNCLE AT BEDSIDE, DR ARGUETA COUNSELED AND EDUCATED RE: STATUS, VERBALIZED UNDERSTANDING, NOOTHER NEEDS AT THIS TIME
--- NOTE | 2016-08-02 13:00 | NUR ---
REPORT RECD PT CARE TRANSFERED. PT ALERT AND ORIENTED X 4, SITTING ON SIDE OF BED. VSS. WILL CONTINUE TO MONITOR.
--- NOTE | 2016-08-02 15:00 | NUR ---
PT FAMILY AT BEDSIDE FOR VISITATION. PT VOICES NO NEEDS AT THIS TIME. VSS WILL MONITOR.
--- NOTE | 2016-08-02 17:00 | NUR ---
PT PROVIDED WITH DINNER TRAY. PT SITS UP IN BED TO EAT.
--- NOTE | 2016-08-02 19:30 | NUR ---
ASSESSMENT COMPLETE. AAO. ON VAPOTHERM AT 40L. SHALLOW AND SHORT OF BREATH. BUTTOCKS REDDENED. BACK HAS REDDNESS AND BRUISING NOTED. RADIAL AND PEDAL PULSES PALPATED. MAKES CHANGES IN POSITION WITH LITTLE ASSISTANCE.
--- NOTE | 2016-08-02 23:00 | NUR ---
REASSESSMENT COMPLETE. NO CHANGES FROM PREVIOUS ASSESSMENT. VSS. NO DISTRESS NOTED. WILL CONTINUE TO MONITOR.
[2016-08-03] VITALS (24 sets, daily range): BP systolic 99–171; BP diastolic 58–107
--- NOTE | 2016-08-03 03:20 | NUR ---
REASSESSMENT COMPLETE. NO CHANGES FROM PREVIOUS ASSESSMENT. VSS. NO DISTRESS NOTED. CALL LIGHT IN REACH.
[2016-08-03 03:35] LABS: BASOPHILS 0.3 % (0-2); EOSINOPHILS 0 % (0-7); HEMATOCRIT 28.3 % (36.0-48.0); HEMOGLOBIN 8.8 g/dL (12-16); IMMATURE GRANULOCYTES 9.2 % (0-5); LYMPHOCYTES 8.7 % (15-50); MCHC 31.1 g/dL (31.0-37.0); MEAN PLATELET VOLUME 11.2 fL (7.4-10.4); NEUTROPHILS 77.8 % (40-80); PLATELET COUNT 184 10x3/uL (130-400); RBC 2.67 10x6/uL (4.00-5.40); RDW 14.8 % (11.5-14.5); WBC 20.9 10x3/uL (4.8-10.8)
[2016-08-03 03:51] LABS: ANION GAP 7.2 mmol/L (8-16); CALCIUM 7.1 mg/dL (8.5-10.1); CARBON DIOXIDE 29.2 mmol/L (21.0-32.0); CREATININE - SERUM 0.9 mg/dL (0.6-1.3); MAGNESIUM - SERUM 2.3 mg/dL (1.8-2.4); POTASSIUM - SERUM 3.4 mmol/L (3.5-5.1); VANCOMYCIN - TROUGH 16.9 ug/mL (10.0-20.0)
--- NOTE | 2016-08-03 18:31 | NUR ---
0715-RECIVED PER FLOW SHEET-SITTING UP AT SIDE OF [id number] AND 40L-DECREASED TO 60 AND 40L- 0830-ASSISTED TO BEDSIDE COMMODE-TOLERATED WELL 0930-ASSISTED TO SIDE OF BED-TOLERATED WELL 1130-ASSISTED BACK TO BED-PT ABLE TO MOVE SELF IN BED 1500- AT BEDSIDE-MEAL BROUGHT FROM OUTSIDE- 1630-DINNER TRAY TAKEN 1800-OFFERED PAIN MEDICINE AND PT REFUSED-STATED LATER
--- NOTE | 2016-08-03 19:00 | NUR ---
SHIFT ASSESSMENT COMPLETE PER FLOWSHEET, SEE FOR DETAILS. PATIENT A&O X4, ON VAPOTHERM @ 40% WITH O2 SAT @ 96%. S1S2 WITH NSR ON MONITOR. RR SHALLOW, LUNG SOUNDS CLEAR, DIMINISHED IN LOWER LOBES. BOWEL SOUNDS ACTIVE. PATIENT JUST AMBULATED TO BEDSIDE COMMODE WITH ASSIST, PASSED GAS BUT NO BM. PERIPHERAL PULSES +2, BILATERAL. CAP REFILL < 3 SECONDS. UPPER LEFT ARM PICC LINE INFUSING NS @ 75MLS/HR. DRESSING C/D/I, SITE WNL, FLUSHED AND SWAB CAPS IN USE. VSS, WILL MONITOR. 2100- MEDS GIVEN- NO DIFFICULTY. VSS, DENIES NEED.
--- NOTE | 2016-08-03 23:00 | NUR ---
REASSESSMENT COMPLETE PER FLOWSHEET, SEE FOR DETAILS. NO CHANGES FROM PREVIOUS, RESTING WELL. VSS.
[2016-08-04] VITALS (24 sets, daily range): BP systolic 128–188; BP diastolic 86–123
--- NOTE | 2016-08-04 01:00 | NUR ---
PATIENT RESTING WITH EYES CLOSED, VSS, WILL MONITOR.
--- NOTE | 2016-08-04 03:05 | NUR ---
REASSESSMENT COMPLETE PER FLOWSHEET, SEE FOR DETAILS. 0500- PATIENT RESTING WITH EYES CLOSED, RR EVEN AND NONLABORED. O2 SAT 97%
[2016-08-04 04:25] LABS: BASOPHILS 0.4 % (0-2); EOSINOPHILS 0 % (0-7); HEMATOCRIT 32.4 % (36.0-48.0); IMMATURE GRANULOCYTES 10.8 % (0-5); LYMPHOCYTES 7.4 % (15-50); MCH 33.2 pg (26.0-34.0); MCHC 30.9 g/dL (31.0-37.0); MCV 107.6 fL (80.0-100.0); MEAN PLATELET VOLUME 11.5 fL (7.4-10.4); MONOCYTES 3.9 % (2-11); NEUTROPHILS 77.5 % (40-80); PLATELET COUNT 206 10x3/uL (130-400); RBC 3.01 10x6/uL (4.00-5.40)
[2016-08-04 04:33] LABS: ANION GAP 5.1 mmol/L (8-16); CALCIUM 8.1 mg/dL (8.5-10.1); CARBON DIOXIDE 33.2 mmol/L (21.0-32.0); MAGNESIUM - SERUM 2.5 mg/dL (1.8-2.4)
[2016-08-04 04:35] LABS: POTASSIUM - SERUM 4.3 mmol/L (3.5-5.1)
--- NOTE | 2016-08-04 19:00 | NUR ---
SHIFT ASSESSMENT COMPLETE, SEE FOR DETAILS. PATIENT SIITING UP IN BED UPON ENTERING ROOM. PATIENT A&O X4, NOW ON OXYMIZER @ 6L, SATS GREATER THAN 96%. BREATH SOUNDS SHALLOW, LUNG SOUNDS CLEAR. S1S2 NOTED WITH NSR ON MONITOR. BOWEL SOUNDS ACTIVE X4, REPORTS HAVING SEVERAL BM'S TODAY. NEWMAN CATH DRAINING TO GRAVITY, CLOUDY CARLA URINE NOTED. PULSES +2, GENERALIZED EDEMA NOTED. SHYLA PICC LINE DRESSING C/D/I, NO S/S OF INFECTION. VSS, WILL MONTITOR. 2100- AT BEDSIDE, UPDATE PROVIDED. MEDS GIVEN WITHOUT DIFFICULTY.
--- NOTE | 2016-08-04 23:00 | NUR ---
REASSESSMENT COMPLETE, NO CHANGES FROM PREVIOUS, PATIENT DENIES NEED. VSS.
[2016-08-05] VITALS (18 sets, daily range): BP systolic 113–182; BP diastolic 82–102
--- NOTE | 2016-08-05 01:00 | NUR ---
PATIENT RESTING WITH EYES CLOSED, VSS.
--- NOTE | 2016-08-05 03:05 | NUR ---
REASSESSMENT COMEPLTE, SEE FLOWSHEET.
--- NOTE | 2016-08-05 05:00 | NUR ---
LAB DRAWN AND SENT TO LAB, RESTING WELL, VSS, RR EVEN AND NON LABORED.
[2016-08-05 05:10] LABS: BASOPHILS 0.4 % (0-2); EOSINOPHILS 0 % (0-7); HEMATOCRIT 32.2 % (36.0-48.0); IMMATURE GRANULOCYTES 10.1 % (0-5); LYMPHOCYTES 6.2 % (15-50); MCH 33.4 pg (26.0-34.0); MCHC 31.1 g/dL (31.0-37.0); MCV 107.7 fL (80.0-100.0); MEAN PLATELET VOLUME 11.3 fL (7.4-10.4); NEUTROPHILS 79.3 % (40-80); PLATELET COUNT 185 10x3/uL (130-400); RBC 2.99 10x6/uL (4.00-5.40); RDW 15.1 % (11.5-14.5); WBC 34.9 10x3/uL (4.8-10.8)
[2016-08-05 05:21] LABS: CALCIUM 8.4 mg/dL (8.5-10.1); CARBON DIOXIDE 34.4 mmol/L (21.0-32.0); MAGNESIUM - SERUM 2.5 mg/dL (1.8-2.4); POTASSIUM - SERUM 4.4 mmol/L (3.5-5.1)
--- NOTE | 2016-08-05 16:22 | NUR ---
0715-RECIVED PER FLOW OEZLV-[id number]-UVVG REG AND DEEP-SNORING TYPE 0830-ASSISTED TO BEDSIDE COMMODE-COMPLETE AM CARE DONE 1430-DR ARGUETA AT [facility]--ADDRESSED ALL QUESTIONS
--- NOTE | 2016-08-05 19:10 | NUR ---
ASSESSMENT COMPLETED. ALERT AND ORIENTED TO PERSON, PLACE AND TIME. 6L OXYMIZER, JUDY LUNGS DIMINISHED IN THE BASES. LT AC PICC WITH DRSG C-D-I WITH NS @ 10CC/HR VIA PUMP. NEWMAN CATH INTACT WITH ORANGE COLORED URINE IN BAG. PPP. SR ON THE MONITOR. DENIES ANY PAIN OR NEEDS AT THIS TIME.
--- NOTE | 2016-08-05 21:00 | NUR ---
AT BEDSIDE. UPDATE GIVEN.
--- NOTE | 2016-08-05 23:00 | NUR ---
REASSESSMENT COMPLETED. SR ON THE MONITOR.
--- NOTE | 2016-08-06 00:51 | NUR ---
UP TO BSC. SMALL FORMED STOOL. WILL CONT TO MONITOR.
[2016-08-06 03:00] VITALS: BP 137/95
--- NOTE | 2016-08-06 03:00 | NUR ---
EYES CLOSED, RESP EVEN AND UNLABORED. SR ON THE MONITOR.
[2016-08-06 04:22] LABS: BASOPHILS 0.3 % (0-2); EOSINOPHILS 0 % (0-7); HEMATOCRIT 30.4 % (36.0-48.0); HEMOGLOBIN 9.5 g/dL (12-16); IMMATURE GRANULOCYTES 10.8 % (0-5); MCH 33.3 pg (26.0-34.0); MCHC 31.3 g/dL (31.0-37.0); MCV 106.7 fL (80.0-100.0); MEAN PLATELET VOLUME 11.2 fL (7.4-10.4); MONOCYTES 5.3 % (2-11); NEUTROPHILS 76.6 % (40-80); PLATELET COUNT 158 10x3/uL (130-400); RBC 2.85 10x6/uL (4.00-5.40); RDW 15.3 % (11.5-14.5); WBC 23.3 10x3/uL (4.8-10.8)
[2016-08-06 04:34] LABS: ANION GAP 6.9 mmol/L (8-16); CALCIUM 8.4 mg/dL (8.5-10.1); CARBON DIOXIDE 32.5 mmol/L (21.0-32.0); MAGNESIUM - SERUM 2.4 mg/dL (1.8-2.4); POTASSIUM - SERUM 4.4 mmol/L (3.5-5.1)
--- NOTE | 2016-08-06 05:00 | NUR ---
UP TO BSC. TOLLERATED WELL.
[2016-08-06 07:00] VITALS: BP 128/76
--- NOTE | 2016-08-06 08:15 | NUR ---
REPORT ATTEMPTED TO BE CALLED TWICE. NURSE UNAVAILABLE.
--- NOTE | 2016-08-06 09:15 | NUR ---
REPORT CALLED TO FRANCIS ALEJO. EFRA HILL VIA W/C.
--- NOTE | 2016-08-06 10:15 | NUR ---
ARRIVE TO ROOM FROM ICU VIA WHEELCHAIR. ALERT AND ORIENTED X4. O2 SAT 88 WITH 5L OXYMIZER. RESPIRATORY INCREASE O2 TO 6L OXYMIZER. IV INFUSING NS KVO LT AC PICC LINE. DENIES ANY NEEDS AT THIS TIME. CONTINUE PLAN OF CARE. BED LOCKED AND LOW. CALL LIGHT IN REACH. TWO SIDERAILS UP. SCDs ON.
[2016-08-06 11:46] VITALS: BP 148/91
--- NOTE | 2016-08-06 13:19 | EC ---
PATIENT:MARY ANNE BREAUX DATE OF SERVICE: 07/27/16 SEX: F MEDICAL RECORD: [id number] DATE OF : [birth year] LOCATION:D.M2 D.213 AGE OF PATIENT: 41 ADMISSION DATE: 07/27/16 REFERRING PHYSICIAN: INTERPRETING PHYSICIAN: MARQUES VEGA MD ECHOCARDIOGRAM REPORT ECHO CHARGES 4 ECHO COMPLETE CLINICAL DIAGNOSIS: DYSPNEA ECHOCARDIOGRAPHIC MEASUREMENTS (adult normal given) AC root (d.<3.7cm) 2.8 LV Septum d (<1.2 cm> 1.7 Valve Excursion 1.9 LV Septum (systole) 2.0 Left Atria (s.<4.0cm> 2.7 LVPW d(<1.2cm) 1.5 RV (d.<2.3cm) 2.8 LVPW (sytole) 2.0 LV diastole(<5.6CM) 3.5 MV E-F(>70mm/sec) LV systole 2.4 LVOT Diameter 1.8 MV exc.(>10mm) Est.ejection fraction (50-75%) Pericardial Effusion N DOPPLER: LVIT A 72.0 E 96.0 LA RVSP 46.4 LVOT 95.0 AOP1/2T Asc. Ao 130 RVOT 52.0 RA PA 94.0 AV Gradient Peak 6.8 AV Mean 3.0 AV Area 1.9 MV Gradient Peak 4.9 MV Mean 1.9 MV Area COMMENTS: Power Machine Operator: Autumn SIDDIQUIOE Taste Tester:Chandler Johnson TAPE# PACS DATE OF SERVICE: 07/28/2016 Adequate 2D echo, color flow and spectral Doppler, and M-mode. Mild LVH. LV internal dimension are normal. Wall motion is normal. EF is 55%. Aortic valve is tricuspid. No stenosis by Doppler interrogation. The left atrium is normal at 2.7 cm. Mitral valve shows no prolapse. Trace MR. Right-sided chamber is grossly normal. Trace TR. TRANSINT:[id number] Voice Confirmation ID: [id number] DOCUMENT ID: [id number] 08/03/2016 Edited to correct date of service, dmm. ECHOCARDIOGRAM REPORT [id number] MARY ANNE BREAUX MARQUES VEGA MD at [id number] CC: [id number] DICTATION DATE: 07/29/16818 RACKET STRINGER: 07/29/16 1839 ADM IN [facility] [address] [id number]
[2016-08-06 16:00] VITALS: BP 143/96
--- NOTE | 2016-08-06 19:54 | NUR ---
UP TO BSC WITH ASSIST.
[2016-08-06 20:28] VITALS: BP 167/103
--- NOTE | 2016-08-06 21:01 | NUR ---
HS MEDS GIVEN WITH FRESH ICE WATER. HS SNACK PROVIDED AT PT REQUEST. DENIES PAIN OR OTHER NEEDS, BED LOW, CL IN REACH.
[2016-08-06 23:54] VITALS: BP 170/88
--- NOTE | 2016-08-07 00:42 | NUR ---
FISH BONING MACHINE FEEDER AT BEDSIDE FOR VS. NEEDS ADDRESSED AT THIS TIME. CALL LIGHT IN REACH. WILL CONT TO MONITOR.
--- NOTE | 2016-08-07 03:51 | NUR ---
RESTING WITH EYES CLOSED, RESPERATIONS EVEN, NO S/S DISTRESS NOTED.
[2016-08-07 04:05] VITALS: BP 165/93
[2016-08-07 06:15] LABS: BASOPHILS 0.4 % (0-2); EOSINOPHILS 0 % (0-7); HEMATOCRIT 32.3 % (36.0-48.0); HEMOGLOBIN 10.1 g/dL (12-16); LYMPHOCYTES 5.4 % (15-50); MCH 33.6 pg (26.0-34.0); MCHC 31.3 g/dL (31.0-37.0); MCV 107.3 fL (80.0-100.0); MEAN PLATELET VOLUME 11.6 fL (7.4-10.4); MONOCYTES 5.6 % (2-11); NEUTROPHILS 81.6 % (40-80); PLATELET COUNT 169 10x3/uL (130-400); RBC 3.01 10x6/uL (4.00-5.40); RDW 15.4 % (11.5-14.5); WBC 23.8 10x3/uL (4.8-10.8)
[2016-08-07 06:36] LABS: ANION GAP 3.2 mmol/L (8-16); CALCIUM 8.8 mg/dL (8.5-10.1); CARBON DIOXIDE 36.6 mmol/L (21.0-32.0); CREATININE - SERUM 0.9 mg/dL (0.6-1.3); MAGNESIUM - SERUM 2.3 mg/dL (1.8-2.4); POTASSIUM - SERUM 4.8 mmol/L (3.5-5.1)
--- NOTE | 2016-08-07 06:49 | NUR ---
RECEIVED REPORT FROM GERIATRIC NURSING ASSISTANT NURSE, FARA BLANCO. PT IN BED SLEEPING AT THIS TIME. CALL LIGHT IN REACH, NAD NOTED, WILL CONTINUE TO MONITOR.
[2016-08-07 08:16] VITALS: BP 154/98
--- NOTE | 2016-08-07 09:01 | NUR ---
ADMINISTERED MORNING MEDICATIONS, PT IN BED, DENIES ANY NEEDS AT THIS TIME. CALL LIGHT IN REACH, NAD NOTED, WILL CONTINUE TO MONITOR.
[2016-08-07 11:51] VITALS: BP 151/94
[2016-08-07 16:42] VITALS: BP 122/45
[2016-08-07 20:29] VITALS: BP 109/71
--- NOTE | 2016-08-07 21:43 | NUR ---
HS MEDS GIVEN. PT WATCHING TV. VOICING NO NEEDS. NS @ 10ML/HR INFUSING TO LEFT UPPER ARM PICC LINE. CPOC.
[2016-08-08 00:10] VITALS: BP 108/61
[2016-08-08 05:28] VITALS: BP 118/65
[2016-08-08 08:20] VITALS: BP 155/88
[2016-08-08 09:55] LABS: BASOPHILS 0.2 % (0-2); EOSINOPHILS 0.2 % (0-7); HEMATOCRIT 34.6 % (36.0-48.0); HEMOGLOBIN 10.5 g/dL (12-16); IMMATURE GRANULOCYTES 4.5 % (0-5); LYMPHOCYTES 5.2 % (15-50); MCHC 30.3 g/dL (31.0-37.0); MCV 108.8 fL (80.0-100.0); MEAN PLATELET VOLUME 11.4 fL (7.4-10.4); MONOCYTES 2.8 % (2-11); NEUTROPHILS 87.1 % (40-80); PLATELET COUNT 148 10x3/uL (130-400); RBC 3.18 10x6/uL (4.00-5.40); RDW 15.5 % (11.5-14.5)
[2016-08-08 10:16] LABS: ANION GAP 7.5 mmol/L (8-16); CALCIUM 8.8 mg/dL (8.5-10.1); CARBON DIOXIDE 33.8 mmol/L (21.0-32.0); CREATININE - SERUM 1.1 mg/dL (0.6-1.3); POTASSIUM - SERUM 5.3 mmol/L (3.5-5.1)
--- NOTE | 2016-08-08 11:00 | NUR ---
ALERT AND ORIENTED X4. AMBULATING IN [place] PHYSICAL THERAPY STAND BY ASSIST. RETURN TO ROOM. SITTING UP IN CHAIR. INITIATE BLADDER TRAINING. ENCOURAGE TO CALL FOR HELP WHEN FEELING URGE TO VOID. ALERT AND ORIENTED X4. CONTINUE PLAN OF CARE AND SAFETY PRECAUTIONS.
[2016-08-08 12:27] VITALS: BP 112/69
--- NOTE | 2016-08-08 15:23 | NUR ---
Rehab Note- Acute Rehab Prescreen order received. The patient has [employer] insurance and cannot be admitted to [facility] Rehab unit. Spoke with NASIR Crockett. Thank you for this referral! Elise Kaye RN Clinical Liaison, [facility] Rehab
[2016-08-08 16:02] VITALS: BP 192/74
--- NOTE | 2016-08-08 16:34 | NUR ---
Patient Name: MARY ANNE BREAUX Admission Status: ER Accout number: [id number] Admission Date: 07-27-2016 : 1975 Admission Diagnosis:ACUTE RESPIRATORY FAILURE WITH HYPOXIA Attending: TY Current LOS: 12 Anticipated DC Date: Planned Disposition: Inpatient Rehab Primary Insurance: [employer] PLANNED EXTERNAL PROVIDER: [facility] INPAT[facility] Discharge Planning Comments: * Is the patient Alert and Oriented? Yes 0 * How many steps to enter\exit or inside your home? 2 0 * PCP RISHABH ARANGO 0 * Pharmacy [facility] [address] 0 * Preadmission Environment Home with Family 0 * ADLs Independent 0 * Equipment CPAP 0 * Other Equipment [facility] EQUIPMENT PROVIDER PREFERENCE 0 * List name and contact numbers for known caregivers / representatives who currently or will assist patient after discharge: PAYTON BREAUX, SPOUSE, 0 * Community resources currently utilized None 0 * Please name any agencies selected above. NONE 0 * Additional services required to return to the preadmission environment? Yes * Can the patient safely return to the preadmission environment? Yes 0 * Has this patient been hospitalized within the prior 30 days at any hospital? No 0 CM MET WITH PT IN ROOM TO DISCUSS DISCHARGE PLANNING AND NEEDS. PT REPORTS LIVING AT HOME INDEPENDENTLY WITH HER SPOUSE. [facility]. PT HAS NO OUTSIDE SERVICES ASSISTING IN THE HOME. CM DISCUSSED AVAILABILITY OF HOME HEALTH, REHAB SERVICES AND MEDICAL EQUIPMENT. PT WOULD LIKE TO DISCHARGE HOME BUT FEELS SHE MAY NEED REHAB. PT REPORTS HER SPOUSE WILL PICK HER UP FOR DISCHARGE HOME. CM RECEIVED INPATIENT REHAB ORDER, SPOKE TO [facility] WHO REPORTED THEY CANNOT ACCEPT PT. CM SPOKE TO PT REGARDING REHAB OPTIONS, PT REQUESTED CM FAX REFERRAL TO [facility] FOR REHAB SCREENING. CM CALLED [facility], , SPOKE TO NATALIE WHO REPORTS THEY WILL EVALUATE PT FOR INPATIENT REHAB UPON RECEIPT OF REFERRAL. CM FAXED REFERRAL TO [facility] AT [phone]. CM WAITING INPATIENT REHAB EVALUATION AND ADMISSION DETERMINATION/INSURANCE AUTHORIZATION FOR [facility]. Executive Advisor: Homero Calvert
[2016-08-08 20:00] VITALS: BP 116/80
--- NOTE | 2016-08-08 20:10 | NUR ---
STOOL SPECIMEN COLLECTED AND SENT TO LAB. PT SITTING UP IN BEDSIDE CHAIR. ALERT/ORIENTED. NEWMAN PATENT WITH BLADDER TRAINING IN PROGRESS. LEFT A/C SALINE LOCK. O2 @ 7 L/OXIMISER. SEE SHIFT ASSESSMENT.
--- NOTE | 2016-08-08 22:29 | NUR ---
HS MEDS GIVEN. PT DECLINED TO TAKE HS LACTULOSE SAYING SHE HAS HAD 2 VERY LARGE SOFT BMS' TODAY AND DOES NOT WANT IT TO GET LOOSE. WILL MONITOR.
[2016-08-09] VITALS: BP 104/60
[2016-08-09 04:00] VITALS: BP 115/69
[2016-08-09 06:51] LABS: BASOPHILS 0.1 % (0-2); EOSINOPHILS 0.1 % (0-7); HEMATOCRIT 30.7 % (36.0-48.0); HEMOGLOBIN 9.6 g/dL (12-16); IMMATURE GRANULOCYTES 3.6 % (0-5); LYMPHOCYTES 8.5 % (15-50); MCH 33.6 pg (26.0-34.0); MCHC 31.3 g/dL (31.0-37.0); MCV 107.3 fL (80.0-100.0); NEUTROPHILS 80.7 % (40-80); PLATELET COUNT 174 10x3/uL (130-400); RBC 2.86 10x6/uL (4.00-5.40); RDW 15.5 % (11.5-14.5)
[2016-08-09 07:06] LABS: ANION GAP 4.9 mmol/L (8-16); CALCIUM 8.8 mg/dL (8.5-10.1); CARBON DIOXIDE 37.5 mmol/L (21.0-32.0); POTASSIUM - SERUM 4.4 mmol/L (3.5-5.1)
[2016-08-09 08:26] VITALS: BP 127/60
--- NOTE | 2016-08-09 08:30 | NUR ---
NO NEED FOR NEWMAN CATHETER. OBTAINED ORDER AND D/C CATHETER. CATH BULB FULLY INTACT, REMOVED 8CC FROM INFLATION ACCESS. PT TOLERATED WITHOUT ANY DIFFICULTIES. TEACHING PROVIDED AND PT VERBALIZED UNDERSTANDING ON NEWMAN REMOVAL AND THE NEED TO NOW CALL FOR ASSISTANCE TO BSC FOR URINATION PURPOSES. NO FURTHER NEEDS AT THIS TIME. CL IN REACH, BED IN LOWEST, SIDE RAILS X2. WILL CTM.
--- NOTE | 2016-08-09 12:32 | NUR ---
L.UPPER ARM PICC DRSG CHANGED USING STERILE TECHNIQUE. BIOPATCH IN PLACE, NEW DRSG ADHERED TO SKIN, SWAB CAPS IN USE AND DRSG DATED AND INITIALED. INSERTION SITE LOOKED CLEAN NO S/S OF INFECTION NOTED. CL IN REACH. WILL CTM.
[2016-08-09 12:38] VITALS: BP 103/58
--- NOTE | 2016-08-09 15:40 | NUR ---
PT C/O GENERALIZED PAIN AND BACK PAIN. REQUESTING AND PROVIDED WITH PRN TRAMADOL, THIS IS A NEW MED AND TEACHING WAS PROVIDED. FLUSHED L.UPPER ARM PICC ACCESS DOUBLE LUMEN, BOTH LUMENS FLUSH EASILY WITHOUT ANY RESISTANCE MET HOWEVER UNABLE TO DRAW BACK BLOOD. PT HAS VISITOR AT BEDSIDE AND IS RESTING QUIETLY DENIES ANY FURTHER NEEDS AT THIS TIME. CL IN REACH. WILL CTM.
--- NOTE | 2016-08-09 16:43 | NUR ---
Patient Name: MARY ANNE BRAEUX Encounter No: [id number] : 1975 Primary Insurance: [employer] Anticipated DC Date: 08-10-2016 Planned Disposition: Inpatient Rehab External Planned Provider: [facility] DCP follow-up note: CLAUDIO [facility] MET WITH PT TODAY, PT WILLING FOR INPATIENT REHAB. CM PROVIDED UPDATED REFERRAL INFORMATION. PT REQUIRES OT EVALUATION. CM TO FAX OT EVAL WHEN COMPLETED AND [facility]ED TO [facility] FOR [facility]URANCE [facility]ATION OF SERVICES. Homero Calvert, CASE MANAGEMENT
[2016-08-09 16:56] VITALS: BP 127/60
--- NOTE | 2016-08-09 17:12 | NUR ---
OT NOTE: PT COMPLETED BUE AROM AND GROSS MOTOR SKILLS. PT COMPLETED BED MOB WITH CGA. PT COMPLETED ADL WITH SET UP. SAPNA HANSON COTA/Laya
[2016-08-09 20:00] VITALS: BP 135/80
--- NOTE | 2016-08-09 20:49 | NUR ---
HS MEDS GIVEN, LEFT PICC FLUSHED WITH OUT DIFFICULTY HOWEVER WOULD NOT DRAW BACK. PT DENIES NEEDS, BED LOW, CL IN REACH.
--- NOTE | 2016-08-09 22:46 | NUR ---
CALL LIGHT IN REACH, WILL CONTINUE WITH PLAN OF CARE.
[2016-08-10] VITALS: BP 128/75
--- NOTE | 2016-08-10 01:15 | NUR ---
RESTING WITH EYES CLOSED, RESPERATIONS EVEN, NO S/S DISTRESS NOTED.
[2016-08-10 04:00] VITALS: BP 103/58
[2016-08-10 05:59] LABS: BASOPHILS 0.1 % (0-2); EOSINOPHILS 0.1 % (0-7); HEMATOCRIT 29.7 % (36.0-48.0); HEMOGLOBIN 9.1 g/dL (12-16); IMMATURE GRANULOCYTES 2.2 % (0-5); LYMPHOCYTES 10.9 % (15-50); MCH 33.5 pg (26.0-34.0); MCHC 30.6 g/dL (31.0-37.0); MCV 109.2 fL (80.0-100.0); MEAN PLATELET VOLUME 11.3 fL (7.4-10.4); MONOCYTES 7.5 % (2-11); NEUTROPHILS 79.2 % (40-80); PLATELET COUNT 181 10x3/uL (130-400); RBC 2.72 10x6/uL (4.00-5.40); RDW 15.3 % (11.5-14.5); WBC 17.3 10x3/uL (4.8-10.8)
[2016-08-10 06:24] LABS: ANION GAP 6.5 mmol/L (8-16); CALCIUM 9.2 mg/dL (8.5-10.1); CARBON DIOXIDE 38.1 mmol/L (21.0-32.0); CREATININE - SERUM 1.2 mg/dL (0.6-1.3); POTASSIUM - SERUM 4.6 mmol/L (3.5-5.1)
--- NOTE | 2016-08-10 06:55 | NUR ---
LAB CALLED CRITICAL GLUCOSE OF 453. CALLED LAB RESULT TO RACIEL BOWMAN APN ZANJERO FOR DR ISRAEL. ORDERS RECIEVED AND PLACED IN [facility]. CALLED LAB AND NOTIFIED THEM TO ADD HGBA1C TO THIS MORNINGS LABS. WILL CONT TO MONITOR.
[2016-08-10 07:17] LABS: HEMOGLOBIN A1C 7.2 % (4.8-6.0)
[2016-08-10 08:30] VITALS: BP 130/68
--- NOTE | 2016-08-10 11:04 | NUR ---
Patient Name: MARY ANNE BREAUX Encounter No: [id number] : 1975 Primary Insurance: [employer] BLUE [employer]VANT[employer] Anticipated DC Date: 08-10-2016 Planned Disposition: Inpatient Rehab External Planned Provider: [facility] DCP follow-up note: CM FAXED OT EVAL AND UPDATE TO [facility] FOR INSURANCE AUTHORIZATION OF SERVICES. CM WAITING ADMISSION DETERMINATION / INSURANCE AUTHORIZATION FROM [facility]. Homero Calvert, CASE MANAGEMENT
--- NOTE | 2016-08-10 11:23 | NUR ---
FSBS 575.
[2016-08-10 11:51] VITALS: BP 151/94
--- NOTE | 2016-08-10 14:01 | NUR ---
Nutrition education for DMT2: Pt reports she drinks regular soda usually daily. Pt is eating a lot of fast food and sugary foods. Pt does not cook many meals at home. Pt does not get any exercise due to extreme obesity. Reviewed DM consistent CHO diet with emphasis on timing of meals and portion control. Advised pt to eliminate all sugary drinks from diet and start cutting usual portions of food at least in half. Stressed the importance of not skipping meals. Also discussed that regular exercise will help with weight loss and keep glucose under better control. Provided printed diet information and RDN name and phone number to pt. RDN will be available if needed. Thank you for the consult.
[2016-08-10 15:59] VITALS: BP 116/60
--- NOTE | 2016-08-10 16:44 | NUR ---
OT NOTE: PT COMPLETED BUE AROM EXS FOR INCREASED ACT TOLERANCE. PT COMPLETED SIT TO STANDS FOR INCREASED SAFETY WITH TRANSFERS. PT COMPLETED ADL WITH SET UP. THANK YOU, SHAY LOU
--- NOTE | 2016-08-10 17:35 | NUR ---
RECHECKING FSBS AND GLUCOMETER CANT READ R/T TOO HIGH. ORDERED A STAT GLUCOSE LAB DRAW. WILL SEE RESULT AND PAGED FOR FURTHER ORDERS.
--- NOTE | 2016-08-10 18:38 | NUR ---
HERE AND AWARE OF BLOOD SUGARS BEING SO HIGH. PT IS VERY NON COMPLIANT SHE HAS EATEN 100% OF ALL MEALS AND ALSO HAD OUTSIDE MEALS BROUGHT IN THAT WERE FAST FOOD. DIABETIC TEACHING AND NUTRITION WAS GIVEN AND PT VERBALIZED UNDERSTANDING BUT IS INSISTING THE ELEVATED SUGARS ARE R/T OUR MEDS WHICH PT IS ON A STERIOD HOWEVER HGB A1C WAS 7.2 AND PT EATS WHATEVER SHE WANTS. WILL CONTINUE TO MONITER AND TREAT WITH SS INSULIN AND DO OUR BEST.
[2016-08-10 20:21] VITALS: BP 102/71
--- NOTE | 2016-08-10 23:00 | NUR ---
REC'D PAIENT LYING IN BED ASLEEP. NO DISTRESS NOTED. CAME BACK AROUND 2100, WOKE HER UP STATED PAIN WAS 5/10. ADMINISTERED MEDS PRESCRIBED. DENIED FURTHER NEEDS AT THIS TIME. BED LOW. LOCKED, CALL LIGHT IN REACH.
--- NOTE | 2016-08-10 23:13 | NUR ---
PT RESTING WELL WITHOUT C/O OR DISTRESS NOTED. CALL LIGHT WITHIN REACH. NO NEEDS VOICED. WILL CONT TO MONITOR.
[2016-08-11 00:25] VITALS: BP 129/69
--- NOTE | 2016-08-11 01:04 | NUR ---
PATIENT IS ASLEEP. NO DISTRESS NOTED. WILL CONT TO MONITOR. BED LOW, LOCKED, CALL LIGHT IN REACH.
[2016-08-11 04:33] VITALS: BP 115/57
[2016-08-11 05:41] LABS: BASOPHILS 0.1 % (0-2); EOSINOPHILS 0.2 % (0-7); HEMATOCRIT 30.5 % (36.0-48.0); HEMOGLOBIN 9.2 g/dL (12-16); IMMATURE GRANULOCYTES 1.8 % (0-5); LYMPHOCYTES 12.8 % (15-50); MCH 32.7 pg (26.0-34.0); MCHC 30.2 g/dL (31.0-37.0); MCV 108.5 fL (80.0-100.0); MEAN PLATELET VOLUME 11.5 fL (7.4-10.4); MONOCYTES 7.8 % (2-11); NEUTROPHILS 77.3 % (40-80); PLATELET COUNT 166 10x3/uL (130-400); RBC 2.81 10x6/uL (4.00-5.40); WBC 16.7 10x3/uL (4.8-10.8)
[2016-08-11 05:48] LABS: CALCIUM 9.4 mg/dL (8.5-10.1); MAGNESIUM - SERUM 2.3 mg/dL (1.8-2.4); PHOSPHOROUS 3.2 mg/dL (2.5-4.9)
[2016-08-11 05:49] LABS: ANION GAP 2.9 mmol/L (8-16); POTASSIUM - SERUM 3.9 mmol/L (3.5-5.1)
--- NOTE | 2016-08-11 06:40 | NUR ---
PATIENT IS ASLEEP IN BED. NO DISTRESS NOTED. ADMINISTERED MEDS PRESCRIBED. BED LOW, LOCKED, CALL LIGHT IN REACH.
--- NOTE | 2016-08-11 07:31 | NUR ---
AM ROUNDING- RECEIVED REPORT FROM WASH DRILLER HELPER NURSE RODRIGO. PT IS CURRENTLY SITTING UP IN CHAIR WITH EYES OPEN RESTING. PT IS C/O 4/10 BACK PAIN. ON 02 AT 4L VIA NC. NO MONITOR. IV SEEN TO LEFT UPPER ARM PICC THAT IS CURRENTLY SALINE LOCKED. ON EP, WILL CHECK AM LABS AND TX PER PROTOCOL. PER REPORT FROM WASH DRILLER HELPER NURSE, PT HAS CRITICAL LAB ( C02 OF 42), CRITICAL LAB SHEET FILLED OUT BY WASH DRILLER HELPER NURSE AND RACIEL BOWMAN NP PAGED. WILL AWAIT CALLBACK. WILL CONTINUE TO MONITOR AND CONTINUE WITH PLAN OF CARE.
[2016-08-11 08:00] VITALS: BP 92/61
[2016-08-11 12:00] VITALS: BP 106/54
--- NOTE | 2016-08-11 13:40 | NUR ---
DR. ISRAEL ON UNIT INFORMED HIM OF PTS CRITICAL C02 LEVEL (42). NO NEW ORDERS RECEIVED.
--- NOTE | 2016-08-11 15:28 | NUR ---
DEBORAH FLYNN CAME TO INFORM ME THAT WHILE ASSISTING PT WITH SHOWER, NOTICED SKIN TEARS (BILATERAL) TO BACK OF PTS UPPER LEGS. PLACED 4X4 GAUZE PADS OVER SITE AND SECURED WITH TEGADERM. WILL CONTINUE TO MONITOR.
[2016-08-11 16:00] VITALS: BP 123/72
--- NOTE | 2016-08-11 18:10 | NUR ---
PT IS CURRENTLY SITTING UP IN BED WITH EYES OPEN RESTING. PT DENIES ANY NEED AT CURRENT TIME. WILL CONTINUE TO MONITOR.
[2016-08-11 20:00] VITALS: BP 149/71
--- NOTE | 2016-08-11 20:59 | NUR ---
HS MEDS GIVEN WITH FRESH ICE WATER. BS 313, COVERED PER S/S. WILL CONT TO MONITOR.
[2016-08-12] VITALS (7 sets, daily range): BP systolic 100–171; BP diastolic 41–75
--- NOTE | 2016-08-12 01:00 | NUR ---
RESTING WITH EYES CLOSED, RESPERATIONS EVEN, NO S/S DISTRESS NOTED.
[2016-08-12 05:13] LABS: BASOPHILS 0.1 % (0-2); EOSINOPHILS 0.1 % (0-7); HEMATOCRIT 29.3 % (36.0-48.0); HEMOGLOBIN 9.1 g/dL (12-16); IMMATURE GRANULOCYTES 1.1 % (0-5); LYMPHOCYTES 14.2 % (15-50); MCH 33.5 pg (26.0-34.0); MCHC 31.1 g/dL (31.0-37.0); MCV 107.7 fL (80.0-100.0); MEAN PLATELET VOLUME 10.8 fL (7.4-10.4); MONOCYTES 7.5 % (2-11); PLATELET COUNT 173 10x3/uL (130-400); RBC 2.72 10x6/uL (4.00-5.40); RDW 15.1 % (11.5-14.5); WBC 14.3 10x3/uL (4.8-10.8)
[2016-08-12 05:26] LABS: ANION GAP 5.8 mmol/L (8-16); CALCIUM 9.1 mg/dL (8.5-10.1); POTASSIUM - SERUM 3.9 mmol/L (3.5-5.1)
[2016-08-12 05:27] LABS: CARBON DIOXIDE 40.1 mmol/L (21.0-32.0)
--- NOTE | 2016-08-12 07:35 | NUR ---
AM ROUNDING- RECEIVED REPORT FROM TRANSLATOR/INTERPRETER NURSE FARA. PT IS CURRENTLY LAYING IN BED ON BACK WITH EYES CLOSED RESTING, SNORING LOUDLY. ON 02 AT 4L VIA NC. NO MONITOR. IV SEEN TO LEFT UPPER ARM PICC THAT IS CURRENTLY SALINE LOCKED. NO NEED AT CURRENT TIME. WILL CONTINUE TO MONITOR AND CONTINUE WITH PLAN OF CARE.
--- NOTE | 2016-08-12 17:28 | NUR ---
PT IS SITTING UP IN CHAIR WATCHING TV. GUEST AT BEDSIDE. PT IS CURRENTLY REQUESTING A FAN. DEBORAH GUARDADO IS LOOKING FOR A FAN FOR PT. WILL CONTINUE TO MONITOR.
--- NOTE | 2016-08-12 19:25 | NUR ---
RESUMED CARE OF PT, LYING IN BED RESPIRATIONS EVEN AND UNLABORED ON 4LPM VIA NC. LEFT PICC SALINE LOCKED. NO NEEDS NOTED AT THIS TIME. CALL LIGHT IN REACH. WILL CONTINUE TO MONITOR. SEE NURSE ASSESSMENT.
--- NOTE | 2016-08-13 02:17 | NUR ---
LYING IN BED WITH EYES CLOSED, CALL LIGHT IN REACH. WILL CONTINUE TO MONITOR.
[2016-08-13 03:44] VITALS: BP 114/75
[2016-08-13 06:12] LABS: BASOPHILS 0.1 % (0-2); EOSINOPHILS 0.3 % (0-7); HEMATOCRIT 29.4 % (36.0-48.0); HEMOGLOBIN 9.1 g/dL (12-16); IMMATURE GRANULOCYTES 1.3 % (0-5); LYMPHOCYTES 16.8 % (15-50); MCH 33.6 pg (26.0-34.0); MCV 108.5 fL (80.0-100.0); MEAN PLATELET VOLUME 10.5 fL (7.4-10.4); MONOCYTES 8.3 % (2-11); NEUTROPHILS 73.2 % (40-80); PLATELET COUNT 178 10x3/uL (130-400); RBC 2.71 10x6/uL (4.00-5.40); RDW 15.3 % (11.5-14.5); WBC 15.2 10x3/uL (4.8-10.8)
[2016-08-13 06:34] LABS: ANION GAP 6.2 mmol/L (8-16); CARBON DIOXIDE 38.8 mmol/L (21.0-32.0); CREATININE - SERUM 0.9 mg/dL (0.6-1.3); MAGNESIUM - SERUM 1.9 mg/dL (1.8-2.4); PHOSPHOROUS 3.4 mg/dL (2.5-4.9)
[2016-08-13 07:22] LABS: ERYTHROCYTE SEDIMENTATION RATE 12 mm/hr (0-20)
[2016-08-13 08:01] VITALS: BP 113/69
--- NOTE | 2016-08-13 09:23 | NUR ---
CM NOTE: MET WITH PT AND SHE STATES THAT SHE WOULD LIKE TO GO HOME INSTEAD OF INPATIENT THEARPY. PT STATES THAT SHE IS STILL USING O2 WHEN SHE AMBULTES IN THE [place]. EXPLAINED TO HER THAT IF SHE NEEDED HOMEO2 THAT IT WOULD BE SET UP WITH [facility]. CM WILL CONTINUE TO FOLLOW AND ASSIST NEEDED WITH DISCHARGE PLANNING/NEEDS EDU LAI RN
[2016-08-13] MEDS ORDERED: FERREX 150 PLUS1 CAP PO (12:07)
[2016-08-13 12:09] VITALS: BP 124/64
[2016-08-13] MEDS ORDERED: PREDNISONE10 MG PO (12:11)
[2016-08-13] MEDS ORDERED: GLUCOPHAGE500 MG PO (12:12)
[2016-08-13] MEDS ORDERED: IPRAT-ALBUT 0.5-3 ML UPD (13:29)
[2016-08-13] MEDS ORDERED: BREO ELLIPTA 21 EACH INH (13:31)
--- NOTE | 2016-08-13 15:16 | NUR ---
08/13/2016 15:09 DCP: Discharge Planning DC order rec'd. Patient has chosen [facility] for home health services - DESTINY signed. Referral faxed and called to [facility] @ [place]. Patient currently uses [facility] ([facility]) for CPAP & supplies. Home & Portable O2 & Nebulizer ordered through [facility]. Portable will be delivered to hospital for transport home. No other needs identified or verbalized at this time. CM will follow.
--- NOTE | 2016-08-13 16:17 | NUR ---
OT NOTE: PT COMPLETED BUE EXS FOR INCREASED AX TOLERANCE WITH ADLS. PT COMPLETED BED MOB OF SIDE ROLLING WITH SBA. PT COMPLETED SIMPLE ADL WITH SET UP. THANK YOU, SHERITA LOU/Laya
--- NOTE | 2016-08-13 16:22 | NUR ---
DURING THIS SHIFT, PATIENT HAS GOTTEN IN CHAIR FOR MEALS. NO APPARENT DISTRESS. WARM&DRY . WILL CONTINUE TO MONITOR.
[2016-08-13 16:36] VITALS: BP 122/67
--- NOTE | 2016-08-13 16:52 | NUR ---
DISCHARGE INSTRUCTIONS GIVEN TO PATIENT AND FAMILY. Trang MENDOZA RN HERE TO REMOVE PICC.
--- NOTE | 2016-08-13 17:35 | NUR ---
TO CAR VIA .
== END 2016-08-13 17:37 | disposition home health service (06) | DRG 189 ==
LOC: D.ER 12:00 → D.ICU 15:25 → D.M2 15:25 → D.ICU 07-28 10:48 → D.M2 08-06 10:04
PROVIDERS: Emergency Medicine; Family Medicine; Internal Medicine Pulmonary Disease; ADMIT Family Medicine Adult Medicine
PROC: 0T9B70Z Drainage of Bladder with Drainage Device, Via Natural or Artificial Opening (ICD-10-PCS; principal; 2016-07-28)
PROC: 5A09457 Assistance with Respiratory Ventilation, 24-96 Consecutive Hours, Continuous Positive Airway Pressure (ICD-10-PCS; 2016-07-28)
PROC: 05HF33Z Insertion of Infusion Device into Left Cephalic Vein, Percutaneous Approach (ICD-10-PCS; 2016-08-01)
PROC: B54NZZA Ultrasonography of Left Upper Extremity Veins, Guidance (ICD-10-PCS; 2016-08-01)
DX: J96.01 Acute respiratory failure with hypoxia (principal); J13 Pneumonia due to Streptococcus pneumoniae; J15.6 Pneumonia due to other Gram-negative bacteria; J45.901 Unspecified asthma with (acute) exacerbation; D64.9 Anemia, unspecified; I10 Essential (primary) hypertension; E03.9 Hypothyroidism, unspecified; E66.01 Morbid (severe) obesity due to excess calories; G47.33 Obstructive sleep apnea (adult) (pediatric); I27.2 Other secondary pulmonary hypertension; K59.00 Constipation, unspecified; R04.0 Epistaxis; E11.9 Type 2 diabetes mellitus without complications; Z87.891 Personal history of nicotine dependence

== ENCOUNTER 2017-04-13 00:32 | Emergency (ER) | payer OTHER ==
[2016-07-28 11:53] VITALS: BMI 76.4
[~2017-04-13 00:32] MED LIST: BACTRIM DS TABL1 TAB PO; BREO ELLIPTA 21 EACH INH; CIPRO500 MG PO; FERREX 150 PLUS1 CAP PO; GLUCOPHAGE500 MG PO; HYDROCODON-ACE1 EAC7 PO; IPRAT-ALBUT 0.5-3 ML UPD; LISINOPRIL-HCTZ1 T11 PO; PHENAZOPYRIDIN200 MG PO; PREDNISONE10 MG PO; VOLTAREN75 MG PO
[2017-04-13 01:02] LABS: BASOPHILS 0.3 % (0-2); EOSINOPHILS 2.5 % (0-7); HEMATOCRIT 34.4 % (36.0-48.0); HEMOGLOBIN 11.1 g/dL (12-16); IMMATURE GRANULOCYTES 1.2 % (0-5); LYMPHOCYTES 22.8 % (15-50); MCH 32.6 pg (26.0-34.0); MCHC 32.3 g/dL (31.0-37.0); MCV 101.2 fL (80.0-100.0); MEAN PLATELET VOLUME 10.5 fL (7.4-10.4); MONOCYTES 8.7 % (2-11); NEUTROPHILS 64.5 % (40-80); RDW 12.8 % (11.5-14.5); WBC 11.8 10x3/uL (4.8-10.8)
[2017-04-13 01:06] LABS: PLATELET COUNT 322 10x3/uL (130-400)
[2017-04-13 01:11] LABS: INR 0.95 (0.85-1.17); PROTIME 12.3 SECONDS (11.6-15.0)
[2017-04-13 01:22] LABS: ALBUMIN 3.4 g/dL (3.4-5.0); ANION GAP 13.4 mmol/L (8-16); BILIRUBIN - TOTAL 0.1 mg/dL (0.2-1.3); CALCIUM 9.2 mg/dL (8.5-10.1); CARBON DIOXIDE 27.5 mmol/L (21.0-32.0); CREATININE - SERUM 1.5 mg/dL (0.6-1.3); POTASSIUM - SERUM 3.9 mmol/L (3.5-5.1); PROTEIN - SERUM 7.1 g/dL (6.4-8.2)
== END 2017-04-13 02:12 | disposition home or self-care (01) ==
LOC: D.ER 00:32
PROVIDERS: Emergency Medicine
DX: K64.4 Residual hemorrhoidal skin tags (principal); K59.00 Constipation, unspecified; L98.429 Non-pressure chronic ulcer of back with unspecified severity; I10 Essential (primary) hypertension; E03.9 Hypothyroidism, unspecified

== ENCOUNTER 2017-05-14 17:20 | Emergency (ER) | payer OTHER ==
[2016-07-28 11:53] VITALS: BMI 76.4
== END 2017-05-14 21:20 | disposition home or self-care (01) ==
LOC: D.ER 17:20
DX: M26.609 Unspecified temporomandibular joint disorder, unspecified side (principal); J06.9 Acute upper respiratory infection, unspecified; I10 Essential (primary) hypertension; E03.9 Hypothyroidism, unspecified

== ENCOUNTER 2017-06-29 16:01 | Emergency (ER) | payer OTHER ==
[2016-07-28 11:53] VITALS: BMI 76.4
== END 2017-06-29 17:15 | disposition home or self-care (01) ==
LOC: D.ER 16:01
DX: H01.005 Unspecified blepharitis left lower eyelid (principal); I10 Essential (primary) hypertension

== ENCOUNTER 2018-01-05 14:15 | Emergency (ER) | payer SELFPAY ==
[~2018-01-05] VITALS: Ht 144.8 cm; Wt 148.6 kg
[2018-01-05 14:25] VITALS: Ht 144.8 cm; Wt 148.6 kg
[2018-01-05] MEDS ORDERED: CORTISPORIN EY7.5 ML EACH EYE (14:59)
[2018-01-05] MEDS ORDERED: KEFLEX500 MG PO (14:59)
[2018-01-05 15:51] VITALS: BP 122/60
== END 2018-01-05 15:52 | disposition home or self-care (01) ==
LOC: D.ER 14:15
DX: S92.534A Nondisplaced fracture of distal phalanx of right lesser toe(s), initial encounter for closed fracture (principal); W20.8XXA Other cause of strike by thrown, projected or falling object, initial encounter; Y93.89 Activity, other specified; Y92.019 Unspecified place in single-family (private) house as the place of occurrence of the external cause; H10.31 Unspecified acute conjunctivitis, right eye; H60.502 Unspecified acute noninfective otitis externa, left ear; H66.92 Otitis media, unspecified, left ear; R22.9 Localized swelling, mass and lump, unspecified; H92.02 Otalgia, left ear; E03.9 Hypothyroidism, unspecified; I10 Essential (primary) hypertension; J45.909 Unspecified asthma, uncomplicated

== ENCOUNTER 2018-02-06 18:04 | Emergency (ER) | payer SELFPAY ==
[~2018-02-06] VITALS: Ht 144.8 cm; Wt 103.6 kg
[~2018-02-06 18:04] MED LIST changes: +CORTISPORIN EY7.5 ML EACH EYE; +KEFLEX500 MG PO
[2018-02-06 18:07] VITALS: Ht 144.8 cm; Wt 103.6 kg
[2018-02-06] MEDS ORDERED: AMOXICILLIN875 MG PO (20:28)
[2018-02-06 20:54] VITALS: BP 147/97
== END 2018-02-06 20:54 | disposition home or self-care (01) ==
LOC: D.ER 18:04
DX: J01.90 Acute sinusitis, unspecified (principal); H71.22 Cholesteatoma of mastoid, left ear; R05 Cough; H92.12 Otorrhea, left ear; I10 Essential (primary) hypertension; E03.9 Hypothyroidism, unspecified

== ENCOUNTER 2019-06-04 07:51 | Emergency (ER) | payer MEDICARE ==
[~2019-06-04] VITALS: Ht 144.8 cm; Wt 145.0 kg
[~2019-06-04 07:51] MED LIST changes: +AMOXICILLIN875 MG PO
[2019-06-04 08:01] VITALS: Ht 144.8 cm; Wt 145.0 kg
[2019-06-04] MEDS ORDERED: ZOLOFT50 MG PO (08:07)
[2019-06-04] MEDS ORDERED: LEVOXYL200 MCG PO (08:07)
[2019-06-04] MEDS ORDERED: IBUPROFEN800 MG PO (08:37)
--- NOTE | 2019-06-04 09:19 | NUR ---
According to the suicide assessment screen the patient rates low for suicide. At this time she does not need 1:1 observation. Suicide resource file provided.
[2019-06-04 09:35] VITALS: BP 130/91
== END 2019-06-04 09:36 | disposition home or self-care (01) ==
LOC: D.ER 07:51
DX: M17.11 Unilateral primary osteoarthritis, right knee (principal); M19.032 Primary osteoarthritis, left wrist; I10 Essential (primary) hypertension

== ENCOUNTER → 2019-06-08 08:41 | Outpatient (CLI) | payer OTHER ==
[2019-06-04 08:01] VITALS: BMI 69.2
[~2019-06-08 08:41] MED LIST changes: +IBUPROFEN800 MG PO; +LEVOXYL200 MCG PO; +ZOLOFT50 MG PO
== END | disposition home or self-care (01) ==
LOC: D.RT 08:41
PROVIDERS: ATTEND Pediatrics
DX: Z02.71 Encounter for disability determination (principal)

== ENCOUNTER 2019-10-15 18:00 | Outpatient (CLI) | payer OTHER ==
[2019-06-04 08:01] VITALS: BMI 69.2
== END 2019-10-15 23:59 | disposition home or self-care (01) ==
LOC: D.MAMMO 18:00
PROVIDERS: ATTEND Family Medicine
DX: Z12.31 Encounter for screening mammogram for malignant neoplasm of breast (principal)

== ENCOUNTER 2019-11-28 16:38 | Emergency (ER) | payer OTHER ==
[2019-11-28 16:55] VITALS: Ht 144.8 cm
[2019-11-28] MEDS ORDERED: BACLOFEN20 M1 PO (18:26)
[2019-11-28] MEDS ORDERED: VOLTAREN75 MG PO (18:26)
[2019-11-28 18:41] VITALS: BP 147/86
== END 2019-11-28 18:42 | disposition home or self-care (01) ==
LOC: D.ER 16:38
DX: M25.512 Pain in left shoulder (principal); S43.402A Unspecified sprain of left shoulder joint, initial encounter; W19.XXXA Unspecified fall, initial encounter; Y93.9 Activity, unspecified; Y92.9 Unspecified place or not applicable; E03.9 Hypothyroidism, unspecified; I10 Essential (primary) hypertension; J45.909 Unspecified asthma, uncomplicated